=== PATIENT | male | born 1960 | race Caucasian/White ===

== ENCOUNTER → 2023-05-28 | Outpatient (CLI) | payer OTHER ==
[2023-05-28 10:10] VITALS: TEMP 97.7
[2023-05-28 12:56] LABS: APPEARANCE, CSF HAZY (CLEAR); COLOR, CSF YELLOW (COLORLESS); CSF TUBE# CELL CNT TUBE 1
[2023-05-28 13:00] VITALS: BP 129/73; O2SAT 100
[2023-05-28 15:06] LABS: CSF TUBE# GLU TUBE 1
[2023-05-28 15:20] LABS: CSF TUBE# TP TUBE 1; TOTAL PROTEIN,CSF 420.9 MG/DL (15-45)
== END ==
LOC: M IRPRO 09:39
PROVIDERS: ATTEND Psychiatry & Neurology Neurology
DX: C70.1 Malignant neoplasm of spinal meninges (principal)